=== PATIENT | female | born 1970 | race Caucasian/White ===

== ENCOUNTER → 2020-05-14 | Outpatient (CLI) | payer OTHER ==
[~2020-05-14] MED LIST: ULTR50TA8 PO; VITA50005 PO; [UNRECOGNIZED DRUG - OTHER] PO
[2020-05-14 13:07] VITALS: BP 126/70
--- NOTE | 2020-05-14 18:40 | REP ---
INDICATION: LT HYDROMARK PLACEMENT. COMPARISON: None. TECHNIQUE: The procedure was performed under the direct supervision of Dr. Ryder. The risks and benefits of the procedure were explained to the patient and informed consent was obtained. A lateral medial approach was utilized. The existing marker clip was localized using stereotactic mammographic guidance. The skin was prepped and draped in a sterile fashion. 1% lidocaine was used as a local anesthetic. Using stereotactic guidance the HydroMARK clip was advanced and deployed. Follow-up mammographic images demonstrate the marker clip to be approximately 3 cm lateral to the pre-existing clip. The patient tolerated the procedure well and there were no immediate complications. After the appropriate amount of monitored convalescence, the patient was discharged from the department. FINDINGS: None IMPRESSION: Stereotactic mammographic guidance for HydroMARK clip placement. <Electronically signed by Galen Bautista > 05/14/20 [id number] <Electronically signed by Kole Ryder > 05/14/20 2153
--- NOTE | 2020-05-14 18:41 | REP ---
INDICATION: POST HYDROMARK PLACEMENT. COMPARISON: Mammogram 12/04/2019. TECHNIQUE: Real-time sonographic evaluation of left breast performed. FINDINGS: Today an attempt was made to place a HydroMARK clip at the site of the previously placed biopsy clip in the upper-outer quadrant of the left breast. However the clip deployed 2 superficially. Therefore we scanned the left breast sonographically and we are able to identify the previously placed biopsy clip in the upper-outer quadrant of the left breast. Since this is visible sonographically no further attempt to place a hydro nolan clip will be made. IMPRESSION: Ultrasound of the left breast clearly demonstrates the previously placed biopsy clip in the upper outer quadrant. Today we attempted to place HydroMARK clip at the site of this previously placed clip, but the HydroMARK clip deployed too far laterally. RECOMMENDATION: None. <Electronically signed by Kole Ryder > 05/14/20 1042
--- NOTE | 2020-05-15 11:14 | REP ---
INDICATION: N60.92 ATYPICAL DUCTAL HYPERPLASIA LT,POST HYDROMARK PLACEME. COMPARISON: 12/04/2019. TECHNIQUE: LM and CC views left breast performed. FINDINGS: We attempted to place a HydroMARK clip at the site of the previously placed clip laterally in the left breast. It is well aligned in the LM projection but deployed too superficially, laterally located in the CC projection. We then performed ultrasound of that area. The originally placed biopsy clip is well seen sonographically. Therefore no further attempts were made to place a HydroMARK clip at the site of the prior biopsy. IMPRESSION: The HydroMARK clip deployed superficially lateral to the previously placed biopsy clip. However the previously placed biopsy clip is visualized by ultrasound, and therefore no further attempts were made. RECOMMENDATION: None. <Electronically signed by Kole Ryder > 05/15/20 1111
== END ==
LOC: M WHCPRO 10:13
PROVIDERS: ATTEND Surgery
DX: N60.92 Unspecified benign mammary dysplasia of left breast (principal)

== ENCOUNTER → 2020-05-23 | Outpatient (CLI) | payer OTHER ==
--- NOTE | 2020-05-23 12:59 | REP ---
INDICATION: LT STEREOTACTIC HYDROMARK PLACEMENT. COMPARISON: None. TECHNIQUE: The procedure was performed under the personal supervision of Dr. Ryder. The risks and benefits of the procedure were explained to the patient and informed consent was obtained. A lateral medial approach was utilized. The existing marker clip was localized using stereotactic mammographic guidance. The skin was prepped and draped in a sterile fashion. 1% lidocaine was used as a local anesthetic. A 10 gauge mammotome needle was inserted. The aperture was opened and the HydroMARK delivery system was inserted and the marker clip was deployed at the target site. The patient tolerated the procedure well and there were no immediate complications. After the appropriate amount of monitored convalescence, the patient was discharged from the department. FINDINGS: Same IMPRESSION: Stereotactic guidance for HydroMARK marker clip placement. <Electronically signed by Galen Bautista > 05/23/20 0957 <Electronically signed by Kole Ryder > 05/23/20 2415
--- NOTE | 2020-05-23 13:50 | REP ---
INDICATION: N60.92 LT STEROTACTIC HYDROMARK PLACEMENT. COMPARISON: 05/14/2020, 12/04/2019. TECHNIQUE: ML and CC views left breast performed. FINDINGS: A HydroMARK clip is placed directly adjacent to the previously placed biopsy clip in the lateral left breast. The more superficial HydroMARK clip which deployed too far laterally is again noted, approximately 3.5 cm lateral to the correctly placed clips. IMPRESSION: Successful HydroMARK clip placement adjacent to prior biopsy clip in the lateral left breast. RECOMMENDATION: Clinical follow-up. <Electronically signed by Kole Ryder > 05/23/20 0919
[2020-05-23 18:20] VITALS: BP 130/70
== END ==
LOC: M WHCPRO 07:46
PROVIDERS: ATTEND Surgery
DX: N60.92 Unspecified benign mammary dysplasia of left breast (principal)

== ENCOUNTER → 2020-05-25 | Outpatient (CLI) | payer BC, OTHER | LOC: M LABSMTC 11:11 | PROVIDERS: ATTEND Anesthesiology | DX: Z20.822 Contact with and (suspected) exposure to COVID-19 (principal) ==

== ENCOUNTER 2020-05-30 10:56 | Day surgery (SDC) | payer OTHER ==
[~2020-05-30] VITALS: Ht 149.9 cm; Wt 73.4 kg
[~2020-05-30 10:56] MED LIST changes: +HEPARIN SOD (PORCINE) 5000UNITS/ML 1ML VIAL/SYRINGE SQ ONE; +LIDOCAINE 2% 100MG/5ML SDV (FOR ANES.) As Ordered ONE; +LR 1,000 ML IV ONE; +MIDAZOLAM INJ 2MG/2ML VIAL (J2250 PER 1MG) As Ordered ONE; +NS 1,000 ML IV SCH; -ULTR50TA8 PO; +ceFAZolin SOD 2 GM in IV 1 EA IV ONE; +dexameTHASONE 4 MG/ML 1ML VIAL (J1100 PER 1MG) As Ordered ONE; +fentaNYL 250 MCG/5 ML INJECTION (J3010) As Ordered ONE; +propofoL 200 MG/20 ML VIAL As Ordered ONE
[2020-05-30] MEDS ORDERED: LIDOCAINE 1% SDV 30ML VIAL As Ordered ONE (12:09)
[2020-05-30] MEDS ORDERED: BUPIVACAINE LIPOSOME/PF 1.3% 20ML VIAL (13.3MG/ML)(EXPAREL)(C9290 PER1MG) As Ordered ONE (12:09)
[2020-05-30] MEDS ORDERED: BUPIVACAINE HCL 0.25% 30ML VIAL As Ordered ONE (12:09)
[2020-05-30] MEDS ORDERED: propofoL 200 MG/20 ML VIAL As Ordered ONE (13:10)
[2020-05-30] MEDS ORDERED: METOCLOPRAMIDE INJ 10MG/2ML VIAL (J2765 PER 1) As Ordered ONE (13:21)
[2020-05-30] MEDS ORDERED: ACETAMINOPHEN 1000MG 100ML IV BTL (OFIRMEV) (J0131 PER 10MG) As Ordered ONE (13:21)
[2020-05-30] MEDS ORDERED: HYDROmorphone HCL 2 MG/ML 1ML VIAL (J1170) As Ordered ONE (13:41)
[2020-05-30] MEDS ORDERED: LABETALOL 100MG/20ML VIAL As Ordered ONE (14:43)
[2020-05-30] MEDS ORDERED: SEVOFLURANE INHAL SOLN 250 ML BTL As Ordered ONE (14:51)
[2020-05-30] MEDS ORDERED: ULTR50TA8 PO (15:42)
[2020-05-30] MEDS ORDERED: MEPERIDINE INJ 25 MG/ML VIAL (J2175) IV PRN (16:15)
[2020-05-30] MEDS ORDERED: fentaNYL 100 MCG/2 ML INJECTION (J3010) IV PRN (16:15)
[2020-05-30] MEDS ORDERED: ONDANSETRON 4MG/2ML VIAL IV PRN (16:15)
[2020-05-30] MEDS ORDERED: oxyCODONE 5MG TAB PO PRN (16:15)
[2020-05-30] MEDS ORDERED: LR 1,000 ML IV SCH (16:15)
[2020-05-30] MEDS ORDERED: METOCLOPRAMIDE INJ 10MG/2ML VIAL (J2765 PER 1) IV PRN (16:15)
[2020-05-30 17:17] VITALS: BP 127/75
--- NOTE | 2020-05-30 21:58 | ROOPDOC ---
[facility] Report Of Operation Report of Operation DATE OF PROCEDURE: 05/30/20 PREPROCEDURE DIAGNOSES: Left atypical ductal hyperplasia POSTPROCEDURE DIAGNOSES: Left atypical ductal hyperplasia PROCEDURE: Left excisional biopsy with intraop wire placement SURGEON: Peter Meneses ANESTHESIA: general ESTIMATED BLOOD LOSS: Approximately 25 mL. COMPLICATIONS: none REMARKS: 2 clips seen in specimen DESCRIPTION OF PROCEDURE: INDICATIONS: Ms. Butcher is a 50-year-old woman who was found to have suspicious calcifications on screening left breast mammogram. Patient underwent stereotactic biopsy at [facility]. Nonhydromark clip was placed. Calcs were seen in the specimen. Pathology came back as ADH. Excisional biopsy was offered to patient. Since lesion was not visible sonographically, an attempt was made to place Hydromark clip stereotactically however the first clip migrated 3 cm away from the lesion. A second Hydromark clip was placed 4 mm away from the original clip. The Second Hydromark was visible on preop sonography. She was medically cleared for surgery by her primary care doctor. Risks and possible complications of surgical procedure including bleeding, infection and injury to surrounding structures were explained to the patient and she wished to proceed. Consent was signed. My initials were placed on the operative site. Subcutaneous injection of 5000 units of heparin was done in Preop. DETAILS: Patient was taken to the operating room and placed on the operating room table. A sign in was called stating patients name, date of and the procedure to be done. Preoperative antibiotics were infused. Smooth induction of general anesthesia was done. Patients hands were extended on arm rests. Care was taken not to over extend the arms. Pillow was placed under the knees and a foam was placed under the heels. Sequential compression devices were placed and assured to function correctly. Procedure was started with left breast intraop wire localization. Appropriate time out was done and patients name, date of , and the procedure to be done were confirmed. Left breast was cleaned by me. Intraoperative ultrasound was used again to confirm location of the correct Hydromark clip which was deep by the muscle. The misfired Hydromark clip was also see superficially located in the lateral aspect of the left breast. Location of the correct Hydromark clip (deep) was marked on the skin as well. 21 G [employer] Breast Lesion Localization Needle was used to place 25 cm wire. The wire was placed next to the clip. The end of the wire was passed slightly distal to the clip. The images were captured confirming adequate placement of the localizing wire. Sales Training Representative assisted with the wire placement. Next, patients left breast and axilla were prepped and draped in the usual fashion. Care was taken not to displace the wire. Appropriate time out was done again prior second part of the procedure. Patients name, date of , and the procedure to be done were confirmed. Next, local anesthetic using 1% lidocaine and 0.25 % Marcaine 50/50 mix was injected at the site of planned periareolar incision. The incision was made with the scalpel. Subcutaneous skin flaps were raised and the guide wire was carefully pulled into the wound. Dissection was carries along the wire until the previously marked on the skin area of target lesion location was encountered. At this point, wider excision of the tissue surrounding the wire was done. The Hydromark clip was identified in the tissue with intraoperative hockey stick ultrasound probe. The end of the wire was identified with palpation. The excisional biopsy specimen was carefully removed from the breast keeping its proper orientation and moved to the back table where margins were marked with t he surgical inking kit following the standard colors recommendations. Specimen was then placed on the grid and placed in [employer] Specimen Imaging System. The image revealed the wire, the Hydromark and the original clip in the specimen. The specimen was labeled with patients name and left excisional biopsy and sent to pathology. Next, the wound was irrigated thoroughly and adequate hemostasis was assured. Additional local anesthetic was injected into surrounding tissues. space was approximated with 2-0 Vicryl. The dermis was closed with 3-0 Vicryl and skin was closed with 4-0 Monocryl. Surgical glue was placed over the incision. Patient emerged from the anesthesia without any problems. Fluffs were placed over the operative site and patients chest was wrapped snuggly in the ALICE wrap. Sponge and instrument counts were done and were correct. Patient tolerated procedure well and was taken to recovery unit in stable condition. PETER MENESES DO May 30, 2020 21:58
--- NOTE | 2020-05-31 08:01 | REP ---
INDICATION: BIOPSY, LEFT NEEDLE. COMPARISON: Comparison sonography 23 May 2020.. TECHNIQUE: Sonographic guidance. FINDINGS: Sonographic guidance is provided to Dr. Lomax performed ultrasound-guided needle localization procedure in the left breast. IMPRESSION: Sonographic guidance for needle localization. <Electronically signed by Corey Biswas > 05/31/20 0757
--- NOTE | 2020-05-31 09:24 | REP ---
INDICATION: BIOPSY, NEEDLE LOC LEFT. COMPARISON: Comparison mammography 23 May 2020.. TECHNIQUE: Two specimen radiographs left breast excisional biopsy specimen. FINDINGS: Specimen radiography demonstrates a Bivalve needle wire localization device centrally located in the specimen. There are 2 previously placed needle biopsy marker clips in the breast tissue immediately adjacent to the localizer wire. IMPRESSION: There are 2 marker clips visible adjacent to the localizer wire in the central portion of the excised breast specimen <Electronically signed by Corey Biswas > 05/31/20 [id number]
== END 2020-05-30 17:35 | disposition home or self-care (01) ==
LOC: M SDC 10:56
PROVIDERS: ATTEND Surgery
DX: D05.12 Intraductal carcinoma in situ of left breast (principal); F32.9 Major depressive disorder, single episode, unspecified
CPT/HCPCS: 19125; 36415; 76942; 86850; 86900; 86901; 88307; J0131; J0690; J1100; J1170; J1644; J2250; J2765; J3010

== ENCOUNTER → 2020-06-21 | Outpatient (CLI) | payer OTHER ==
[~2020-06-21] MED LIST changes: +ACET-897 PO; -HEPARIN SOD (PORCINE) 5000UNITS/ML 1ML VIAL/SYRINGE SQ ONE; +ICY1PAD TOP; -LIDOCAINE 2% 100MG/5ML SDV (FOR ANES.) As Ordered ONE; -LR 1,000 ML IV ONE; -MIDAZOLAM INJ 2MG/2ML VIAL (J2250 PER 1MG) As Ordered ONE; -NS 1,000 ML IV SCH; +TAMO20TA8 PO; +ULTR50TA8 PO; -ceFAZolin SOD 2 GM in IV 1 EA IV ONE; -dexameTHASONE 4 MG/ML 1ML VIAL (J1100 PER 1MG) As Ordered ONE; -fentaNYL 250 MCG/5 ML INJECTION (J3010) As Ordered ONE; -propofoL 200 MG/20 ML VIAL As Ordered ONE
--- NOTE | 2020-06-21 10:25 | RADONC.CN ---
Radiation Oncology Hx/Consult Radiation Oncology Consult Date of Service: Jun 21, 2020 Pt Identifier Ellyn Butcher is a 50 year old female with with a family history of breast cancer who has a mammogram detected left breast DCIS [id number] ER/CT+ Grade 1, she is s/p excisional biopsy on 05/30/20. She is seen for consideration of adjuvant RT. Diagnosis/Treatment History Oncologic History 11/14/19 Mammograms EWBC with calcifications in the left lateral breast, right breast normal 12/05/19 Diagnostic mammogram and biopsy with ADH 12/19/19 MRI no dominant mass 04/08/[address] Lomax decided for excisional biopsy 05/30/20 Excisional biopsy showing DCIS [id number] ER/CT+ HER2- Grade 1 margins negative (0.2 cm closest) Interval History Feels well overall. Has seen Dr. Landa, plan for tamoxifen after RT. She has some left shoulder impaired ROM unrelated to her surgery. No post-operative complaints. No pain or numbness. Appetite good weight stable. Past Medical History: Frozen shoulder (L&R) Breast history: OCP 11 years No HRT/Fertilityt 1st @ 16 Menses @ 12 LMP 01/02/20 Perimenopausal Past Surgical History: Tubal ligation @ 33 Family History: Father bladder cancer Maternal grandfather lung cancer Maternal aunt breast cancer Social History: Non-smoker Drinks 1-2 drinks 3 days per week Allergies / Meds Allergies: Coded Allergies: No Known Allergies (Unverified , 05/15/20) Home Meds Active Scripts Tamoxifen Citrate (Tamoxifen Citrate) 20 Mg Tablet, 20 MG PO DAILY for 30 Days, #30 TAB 2 Refills Prov:MIKE LANDA MD 06/18/20 Reported Medications Menthol (Icy Hot) 1 Each Adh..patch, 1 PATCH TOP PRN for 30 Days, #1 PATCH 06/18/20 Acetaminophen (Tylenol Extra Strength) 500 Mg Tablet, 2 TAB PO PRN, TAB 06/18/20 [Collagen Multi] No Conflict Check, 1 SCOOP PO DAILY 05/15/20 Ergocalciferol (Vitamin D2) (Vitamin D2) 50,000 Units Cap, 75599 UNITS PO 1XWK 05/15/20 Discontinued Scripts Tramadol HCl (Ultram) 50 Mg Tablet, 50 MG PO Q6HP PRN for pain MDD 4 Tablet(s) for 3 Days, #10 TAB Prov:PETER LOMAX DO 05/30/20 Review of Systems Constitutional: Denies: Chills, Fever, Night Sweats Eyes: Denies: Pain, Vision change HEENT: Denies: Head Aches, Dysphagia, Sore Throat Skin: Denies: Rash, Lesions, Bruising Pulmonary: Denies: Dyspnea, Cough Cardiovascular: Denies: Chest Pain, Palpitations, Edema Gastrointestinal: Denies: Nausea, Vomiting, Abdominal Pain, Diarrhea Genitourinary: Denies: Dysuria, Frequency, Incontinence Hematologic: Denies: Bruising, Petecchia, Enlarged Lymph Nodes Musculoskeletal: Denies: Neck pain, Back pain Neurological: Denies: Weakness, Numbness, Incoordination Psych: Reports: Mood Normal; Denies: Memory Issues, Thoughts of Self Harm Vital Signs Ht 61" Wt 160 Lbs BMI 30 T 97.4 P 95 RR 16 BP 135/80 O2 99% Pain 0 Fatigue 0 General Exam: Positive: Alert, Cooperative, No Acute Distress Eye Exam: Positive: PERRLA, EOMI ENT EXAM: Positive: Mucous membr. moist/pink, Pharynx Normal Neck Exam: Negative: Thyromegaly, Lymphadenopathy Chest Exam: Positive: Normal air movement; Negative: Rales, Rhonchi, Wheezing Heart Exam: Positive: Rate Normal, Regular Rhythm Breast Exam: Positive: Symmetric Bilaterally, Other Breast Findings (Mild ptosis, BL symmetric); Negative: Lumps or Masses, Nipple Retraction, Nipple Discharge, Skin Changes Abdomen Exam: Positive: Soft; Negative: Tenderness, Mass Extremity Exam: Negative: Edema, Tenderness Skin Exam: Positive: Nl turgor and temperature; Negative: Rash Neuro Exam: Positive: Normal Gait, Normal Speech, Cranial Nerves 3-12 NL Psych Exam: Positive: Mental status NL, Mood NL, Memory Intact Diagnostic and Laboratory Diagnostic Review Radiologic images, relevant labs and pathology reports were personally reviewed and discussed with Ms. Butcher. Assessment and Plan Impression Ms. Butcher is a 50 year old female with a family history of breast cancer who has a mammogram detected left breast DCIS [id number] ER/CT+ Grade 1, she is s/p e xcisional biopsy on 05/30/20. She is seen for consideration of adjuvant RT. Stage Stage 0 [id number] ER/CT+ Grade 1 Performance Status ECOG 0 Plan We had an extensive discussion with Ms. Butcher regarding the diagnosis at hand and available therapeutic options. She is young and healthy otherwise. She has recovered well from surgery with no lingering complaints. We discussed that given her age and margin status (0.2 cm) she would be considered cautionary per APBI guidelines. Thus my recommendation is for whole breast RT 40 Gy in 15 fractions without a boost. She has some impaired ROM in the LUE unrelated to her surgery, but I think it is definitely worthwhile to try prone positioning for treatment, her habitus is optimal for this technique and it would facilitate maximal sparing of the heart and lung. She agreed to try prone. We discussed the logistics of receiving radiation therapy in detail including the need for a 1-time planning session. This can occur next week We reviewed the side effects of treatment, fatigue, skin reaction and fibrosis as well as late cardiac toxicity, which will be mitigated with prone treatment. After discussing the risks, benefits and alternatives to radiation therapy, Ms. Butcher was amenable to pursuing radiotherapy. All questions were answered to the patient's satisfaction. We instructed the patient that if there were any questions,concerns or changes in clinical status in the interim to contact us. Recommendations Left whole breast RT 40 Gy in 15 fractions, no boost, prone treatment Simulation next week Tamoxifen to follow RT per Dr. Meliton Ndiaye Statement Total time of [33] minutes was spent preparing for the visit [3], obtaining HPI [4], examining the patient [3], reviewing diagnostic tests [4], discussing management options [10], coordinating care [2], and writing this note [7]. ARIADNE BASS MD Jun 21, 2020 10:25
== END ==
LOC: M ONCR 08:47
PROVIDERS: ATTEND General Practice
DX: C50.919 Malignant neoplasm of unspecified site of unspecified female breast (principal)

== ENCOUNTER → 2020-07-31 | Outpatient (RCR) | payer OTHER ==
[~2020-07-31] MED LIST changes: +ONDA-83 PO
== END ==
LOC: M ONCR 07-02 13:51
PROVIDERS: ATTEND General Practice
DX: D05.12 Intraductal carcinoma in situ of left breast (principal)

== ENCOUNTER → 2020-12-24 | Outpatient (CLI) | payer OTHER ==
[~2020-12-24] MED LIST changes: +COLLCAP PO; +ERGO500029 PO; -VITA50005 PO
--- NOTE | 2020-12-24 09:49 | REPMRS ---
Patient History The patient states she had a clinical breast exam in May 2020. Patient has history of cancer in the left breast at age 50. No known family history of cancer. Malignant radio exam breast specimen of the left breast, May 30, 2020. Radiation therapy of the left breast. Taking tamoxifen for [address] Lomax requested a bilat 6 month follow up to left breast cancer diagnosed 05/23 Diagnostic Bilateral Mammo: December 24, 2020 - Exam #: [id number] Bilateral MLO and CC view(s) were taken. XCCL view(s) were taken of the left breast. Technologist: Radha Velez, Technologist Prior study comparison: May 14, 2020, bilateral diagnostic unilateral mammo performed at [facility]. FINDINGS: There are scattered fibroglandular densities. The Volpara volumetric breast density category is:B. There are post treatment changes including diffuse skin thickening and stromal thickening in the left breast. A needle biopsy marker clip is again noted in the upper outer quadrant on the left. There has been no change in the appearance of the mammogram from the prior studies. There is a mild amount of scattered fibroglandular density which is fairly symmetric. There is no interval development of dominant mass, architectural distortion, or grouped microcalcification suggestive of malignancy. 3-D tomosynthesis shows no additional findings. Assessment: BI-RADS/ACR category 2 mammogram. Benign Findings. Recommendation Routine screening mammogram of both breasts in 1 year (for women over age 40). This mammogram was interpreted with the aid of an FDA-approved computer-aided dectection system. Electronically Signed By: Corey Biswas MD 12/24/20 0901
== END ==
LOC: M WHC 08:58
PROVIDERS: ATTEND Surgery
DX: D05.12 Intraductal carcinoma in situ of left breast (principal)
CPT/HCPCS: 77066; G0279

== ENCOUNTER → 2021-02-04 | Outpatient (CLI) | payer OTHER ==
[~2021-02-04] MED LIST changes: +VENL37TA PO
--- NOTE | 2021-02-04 16:22 | RADONC ---
Radiation Oncology Hx/FUP Radiation Oncology Hx/FUP Date of Service: Feb 04, 2021 Pt Identifier Ellyn Hadley is a 50 year old female with a family history of breast cancer who had a mammogram detected left breast DCIS [id number] ER/NJ+ Grade 1, she underwent excisional biopsy on 05/30/20 and received left WBI without boost 40 Gy in 15 fractions from 07/11/20-07/31/20. She remains on tamoxifen. She is seen today for follow up and survivorship care. Diagnosis/Treatment History Oncologic History 11/14/19 Mammograms EWBC with calcifications in the left lateral breast, right breast normal 12/05/19 Diagnostic mammogram and biopsy with ADH 12/19/19 MRI no dominant mass 04/08/[address] Lomax decided for excisional biopsy 05/30/20 Excisional biopsy showing DCIS [id number] ER/NJ+ HER2- Grade 1 margins negative (0.2 cm closest) 07/11/20-07/31/20 Adjuvant left WBI 40 Gy in 15 fractions (omitted boost) 08/01/20- Tamoxifen Survivorship: Test Due Next Last result Notes TSH, T4* 6m post-tx, then q1y N/A Carotid US* q10 y post-tx N/A Smoking cessation Assess annually if applicable N/A Never smoker Screening CT chest q1y if eligible per USPSTF N/A Mammograms Min q1y, if breast conservation June negative EWBC CBC,CMP, Lipids q1y 2021 DEXA q2y if on AI N/A Not post-menopausal Interval History Reports bothersome 2-4x daily hot flashes, have been steady since starting Tamoxifen. No pain in the left breast, no skin concerns. Her frozen shoulder has resolved with PT. Appetite good and weight stable. Current Therapy Tamoxifen 2020- Stage Left breast DCIS stage 0 [id number] ER/NJ+ Grade 1 Social History: Non-smoker Drinks 1-2 drinks 3 days per week Allergies / Meds Allergies: Coded Allergies: No Known Allergies (Unverified , 05/15/20) Home Meds Active Scripts Venlafaxine HCl (Venlafaxine HCl) 37.5 Mg Tablet, 1 TAB PO BID for 30 Days, #60 TAB 3 Refills Prov:ARIADNE BASS MD 02/04/21 Tamoxifen Citrate (Tamoxifen Citrate) 20 Mg Tablet, 20 MG PO DAILY for 30 Days, #30 TAB 2 Refills Prov:MIKE LANDA MD FACP 01/23/21 Ondansetron HCl (Ondansetron HCl) 4 Mg Tablet, 1 TAB PO TIDP PRN for nausea/vomiting, #30 TAB Prov:ARIADNE BASS MD 07/17/20 Reported Medications Ascorbic Acid/Collagen Hydr (Collagen Plus Vit C Capsule) 1 Each Capsule, 1 CAP PO DAILY, CAP 09/16/20 Acetaminophen (Tylenol Extra Strength) 500 Mg Tablet, 2 TAB PO PRN, TAB 06/18/20 Ergocalciferol (Vitamin D2) (Vitamin D2) 50,000 Units Cap, 72222 UNITS PO 1XWK 05/15/20 Discontinued Reported Medications Menthol (Icy Hot) 1 Each Adh..patch, 1 PATCH TOP PRN for 30 Days, #1 PATCH 06/18/20 Review of Systems Review of Systems Constitutional: Reports: Night Sweats; Denies: Fatigue, Weight Loss Eyes: Denies: Pain HEENT: Denies: Head Aches Skin: Denies: Rash, Lesions Breast: Denies: New Breast Lumps / Masses, Nipple Retraction, Breast Pain or Tenderness Pulmonary: Denies: Dyspnea, Cough Cardiovascular: Denies: Chest Pain Gastrointestinal: Denies: Abdominal Pain Endocrine: Denies: Cold Intolerance Musculoskeletal: Denies: Neck pain, Arm pain, Back pain Neurological: Denies: Weakness, Numbness Psych: Reports: Mood Normal Physical Examination Vital Signs Ht 168 lbs T 98.2 P 78 RR 16 BP 145/78 O2 100% Pain 0 Fatigue 0 General Exam: Alert, Cooperative, No Acute Distress Eye Exam: PERRLA, EOMI ENT EXAM: Atraumatic Neck Exam: Supple Chest Exam: Clear to auscultation Heart Exam: Rate Normal, Regular Rhythm Breast Exam: Symmetric Bilaterally, Skin Changes (There is CTCAE grade 1 hyperpigmentation of the left breast); Negative: Lumps or Masses (No lesions in BL breasts or axillae), Nipple Retraction, Nipple Discharge Abdomen Exam: Soft Extremity Exam: Negative: Edema Skin Exam: Nl turgor and temperature Neuro Exam: Normal Gait, Normal Speech, Cranial Nerves 3-12 NL Psych Exam: Mental status NL Diagnostic and Laboratory Diagnostic Review Radiologic images, relevant labs and pathology reports were personally reviewed and discussed with Ms. Butcher. Assessment and Plan Impression Assessment Ms. Butcher is a 50 year old female with a family history of breast cancer who had a mammogram detected left breast DCIS [id number] ER/NJ+ Grade 1, she underwent excisional biopsy on 05/30/20 and received left WBI without boost 40 Gy in 15 fractions from 07/11/20-07/31/20. She remains on tamoxifen. She is seen today for follow up and survivorship care. She is doing well from a post-RT standpoint, with only mild residual hyperpigmentation and no palpable fibrosis. She has no evidence of recurrent disease on exam today. Her most recent mammogram from December is negative. She is having bothersome hot flashes however, I discussed starting effexor 37.5 mg BID for this. She agreed to try. I will see her again in 6 months time. Performance Status ECOG 0 Plan Follow up in 6 months Effexor 37.5 mg BID for hot flashes Ms. Butcher was encouraged to call with questions or concerns in the interim period. Billing Statement Total time of [24] minutes was spent preparing for the visit [2], obtaining HPI [4], examining the patient [3], reviewing diagnostic tests [2], discussing management options [6], coordinating care [1], and writing this note [6]. ARIADNE BASS MD Feb 04, 2021 16:22
== END ==
LOC: M ONCR 15:01
PROVIDERS: ATTEND General Practice
DX: D05.12 Intraductal carcinoma in situ of left breast (principal); R23.2 Flushing; Z79.899 Other long term (current) drug therapy; Z80.3 Family history of malignant neoplasm of breast; Z92.3 Personal history of irradiation

== ENCOUNTER → 2021-04-16 | Outpatient (CLI) | payer OTHER | LOC: M WHC 14:57 | PROVIDERS: ATTEND Internal Medicine Medical Oncology | DX: C50.919 Malignant neoplasm of unspecified site of unspecified female breast (principal); Z79.810 Long term (current) use of selective estrogen receptor modulators (SERMs) ==

== ENCOUNTER → 2021-06-09 | Outpatient (CLI) | payer OTHER ==
[~2021-06-09] MED LIST changes: +PROHANCE 279.3MG/ML 15ML VIAL As Ordered ONE
== END ==
LOC: M RAD 15:01
PROVIDERS: ATTEND Surgery
DX: Z85.3 Personal history of malignant neoplasm of breast (principal); Z92.3 Personal history of irradiation
CPT/HCPCS: 77049; A9576

== ENCOUNTER → 2021-08-13 | Outpatient (CLI) | payer OTHER ==
[~2021-08-13] MED LIST changes: -PROHANCE 279.3MG/ML 15ML VIAL As Ordered ONE
== END ==
LOC: M ONCR 14:46
PROVIDERS: ATTEND General Practice
DX: D05.12 Intraductal carcinoma in situ of left breast (principal); Z80.3 Family history of malignant neoplasm of breast

== ENCOUNTER → 2021-12-26 | Outpatient (CLI) | payer OTHER | LOC: M WHC 10:47 | PROVIDERS: ATTEND Surgery | DX: Z85.3 Personal history of malignant neoplasm of breast (principal) ==

== ENCOUNTER → 2022-03-30 | Outpatient (CLI) | payer OTHER | LOC: M LABSMTC 10:02 | PROVIDERS: ATTEND Anesthesiology | DX: Z01.812 Encounter for preprocedural laboratory examination (principal); Z11.52 Encounter for screening for COVID-19 ==

== ENCOUNTER 2022-04-02 09:47 | Day surgery (SDC) | payer OTHER ==
[~2022-04-02] VITALS: Ht 149.9 cm; Wt 75.9 kg
[~2022-04-02 09:47] MED LIST changes: +NS 1,000 ML IV ONE
[2022-04-02] MEDS ORDERED: propofoL 200 MG/20 ML VIAL As Ordered ONE (12:12)
[2022-04-02 12:31] VITALS: BP 113/63
== END 2022-04-02 13:04 | disposition home or self-care (01) ==
LOC: M OPP 09:47
PROVIDERS: ATTEND Internal Medicine Gastroenterology
DX: Z12.11 Encounter for screening for malignant neoplasm of colon (principal); D12.0 Benign neoplasm of cecum; K63.5 Polyp of colon; Z79.899 Other long term (current) drug therapy; Z85.3 Personal history of malignant neoplasm of breast

== ENCOUNTER → 2022-06-23 | Outpatient (CLI) | payer OTHER ==
[~2022-06-23] MED LIST changes: -NS 1,000 ML IV ONE; +PROHANCE 279.3MG/ML 15ML VIAL ONE
== END ==
LOC: M PLAIMG 08:48
PROVIDERS: ATTEND Nurse Practitioner Women's Health
DX: D05.12 Intraductal carcinoma in situ of left breast (principal); N60.92 Unspecified benign mammary dysplasia of left breast; Z91.89 Other specified personal risk factors, not elsewhere classified; Z85.3 Personal history of malignant neoplasm of breast; Z80.3 Family history of malignant neoplasm of breast
CPT/HCPCS: 77049; A9576

== ENCOUNTER → 2022-07-13 | Outpatient (CLI) | payer OTHER ==
[~2022-07-13] MED LIST changes: -PROHANCE 279.3MG/ML 15ML VIAL ONE
== END ==
LOC: M WHC 13:22
PROVIDERS: ATTEND Nurse Practitioner Women's Health
DX: R92.8 Other abnormal and inconclusive findings on diagnostic imaging of breast (principal); Z65.3 Problems related to other legal circumstances

== ENCOUNTER → 2022-07-22 | Outpatient (CLI) | payer OTHER ==
[2022-07-22 11:10] VITALS: BP 128/78
== END ==
LOC: M WHCPRO 10:16
PROVIDERS: ATTEND Surgery
DX: R92.8 Other abnormal and inconclusive findings on diagnostic imaging of breast (principal); N63.21 Unspecified lump in the left breast, upper outer quadrant

== ENCOUNTER → 2022-08-12 | Outpatient (CLI) | payer OTHER | LOC: M ONCR 12:52 | PROVIDERS: ATTEND Specialist | DX: Z08 Encounter for follow-up examination after completed treatment for malignant neoplasm (principal); Z85.3 Personal history of malignant neoplasm of breast; Z92.3 Personal history of irradiation; L81.8 Other specified disorders of pigmentation; Z79.810 Long term (current) use of selective estrogen receptor modulators (SERMs); Z79.899 Other long term (current) drug therapy ==

== ENCOUNTER → 2022-12-28 | Outpatient (CLI) | payer OTHER | LOC: M WHC 14:07 | PROVIDERS: ATTEND Nurse Practitioner Women's Health | DX: D05.12 Intraductal carcinoma in situ of left breast (principal); N60.92 Unspecified benign mammary dysplasia of left breast; Z80.3 Family history of malignant neoplasm of breast; Z91.89 Other specified personal risk factors, not elsewhere classified ==

== ENCOUNTER → 2023-07-12 | Outpatient (CLI) | payer OTHER ==
[~2023-07-12] MED LIST changes: +PROHANCE 279.3MG/ML 15ML VIAL ONE
== END ==
LOC: M PLAIMG 13:42
PROVIDERS: ATTEND Nurse Practitioner
DX: Z85.3 Personal history of malignant neoplasm of breast (principal)
CPT/HCPCS: A9576; C8908

== ENCOUNTER → 2023-08-25 | Outpatient (CLI) | payer OTHER ==
[~2023-08-25] MED LIST changes: -PROHANCE 279.3MG/ML 15ML VIAL ONE
== END ==
LOC: M ONCR 13:00
PROVIDERS: ATTEND General Practice
DX: Z08 Encounter for follow-up examination after completed treatment for malignant neoplasm (principal); Z85.3 Personal history of malignant neoplasm of breast; Z79.810 Long term (current) use of selective estrogen receptor modulators (SERMs); Z80.3 Family history of malignant neoplasm of breast

== ENCOUNTER → 2024-01-11 | Outpatient (CLI) | payer OTHER | LOC: M WHC 13:53 | PROVIDERS: ATTEND Nurse Practitioner | DX: Z85.3 Personal history of malignant neoplasm of breast (principal); Z98.890 Other specified postprocedural states | CPT/HCPCS: 77066; G0279 ==

== ENCOUNTER → 2024-07-03 | Outpatient (CLI) | payer OTHER ==
[~2024-07-03] MED LIST changes: +PROHANCE 279.3MG/ML 15ML VIAL ONE
== END ==
LOC: M PLAIMG 07:42
PROVIDERS: ATTEND Internal Medicine Medical Oncology
DX: C50.919 Malignant neoplasm of unspecified site of unspecified female breast (principal)
CPT/HCPCS: A9576; C8908

== ENCOUNTER → 2024-08-24 | Outpatient (CLI) | payer OTHER ==
[~2024-08-24] MED LIST changes: -PROHANCE 279.3MG/ML 15ML VIAL ONE
== END ==
LOC: M ONCR 12:57
PROVIDERS: ATTEND General Practice
DX: Z08 Encounter for follow-up examination after completed treatment for malignant neoplasm (principal); Z85.3 Personal history of malignant neoplasm of breast; R23.2 Flushing; Z79.810 Long term (current) use of selective estrogen receptor modulators (SERMs); Z79.899 Other long term (current) drug therapy; Z92.3 Personal history of irradiation; Z98.890 Other specified postprocedural states

== ENCOUNTER → 2025-01-15 | Outpatient (CLI) | payer OTHER | LOC: M WHC 11:04 | PROVIDERS: ATTEND Internal Medicine Medical Oncology | DX: Z85.3 Personal history of malignant neoplasm of breast (principal); R92.323 Mammographic fibroglandular density, bilateral breasts | CPT/HCPCS: 77066; G0279 ==